=== PATIENT | female | born 2005 | race Caucasian/White ===

== ENCOUNTER 2024-09-16 19:29 | Emergency (ER) | payer OTHER, MEDICAID, SELFPAY ==
[2024-09-16 19:34] VITALS: BP 144/90; PULSE 83; RESP 16; TEMP 37.2; O2SAT 100
[2024-09-16 20:19] LABS: Add Urine Microscopic? NO; Appearance Urine Clear (Clear); Bilirubin Urine Negative (Negative); Blood Urine Negative (Negative); Color Urine Yellow (Yellow); Glucose Urine UA Negative (Negative); Ketones Urine Negative (Negative); Leukocyte Esterase Ur Negative LEU/UL (Negative); Nitrate Urine Negative (Negative); Protein Urine Negative (Negative); Specific Grav Ur 1.008 (1.001-1.035); Urobilinogen Urine 0.2 mg/dL (<2.0)
[2024-09-16 20:26] LABS: BEDSIDEPREGUCG Negative (Negative)
[2024-09-16] MEDS: SODIUM CHLORIDE 0.9% IV 1,000 ML 999 ML IV CONT (20:30)
[2024-09-16] MEDS: METOCLOPRAMIDE HCL INJ 10 MG/2 ML VIAL IV PUSH (20:30)
[2024-09-16] MEDS: KETOROLAC 30 MG/ML VIAL (*BKC) IV PUSH (20:31)
[2024-09-16] MEDS: diphenhydrAMINE HCl INJ 50 MG/ML VIAL 25 MG IV PUSH (20:31)
--- NOTE | 2024-09-16 21:34 | ED_ITS ---
HPI - Headache General Chief Complaint: Headache Stated Complaint: Headache, right eye blurred-Migraine Time Seen by Provider: 09/16/24 19:49 History of Present Illness HPI Narrative: Patient is a 18-year-old female who presents ER with multiple complaints. First complaint is migraine headache. Between eyebrows and over the right eye and radiates backwards. Intermittent over last month and she has been seen once in ER and prescribed a Triptan which is no longer working for. She has not seen a PCP but is scheduled to see 1 at the end of October. No fevers or chills or sweats. She will get some blurriness in the right eye when she has the headache. She also has occasional floaters but no flashes of light. Visual acuities are normal. She also reports that she had some diarrhea where she passed a mucus from the rectum today which concerned her. She has no abdominal pain or cramping. No history of inflammatory bowel disease. Patient has had a normal CT of her brain outpatient. Related Data Allergies Allergy/AdvReac Type Severity Reaction Status Date / Time No Known Allergies Allergy Mild Unverified 09/16/24 19:31 Review of Systems Review of Systems: All systems reviewed & are unremarkable except as noted in HPI and below Constitutional: Constitutional: Reports no additional constitutional complaints Cardiovascular: Cardiovascular: Reports no additional cardiovascular complaints Respiratory: Respiratory: Reports no additional respiratory complaints Gastrointestinal: Gastrointestinal: Reports no additional gastrointestinal complaints PMFSH Past Medical History Medical History (Updated 09/16/24 @ 21:46 by Sawyer Duncan MD) Migraine headache Exam Narrative: GENERAL: Well-appearing, well-nourished, and in no acute distress. HEAD: Normocephalic, atraumatic. ENT: Mucous membranes moist. CHEST: Clear to auscultation. No respiratory distress. HEART: Regular rate and rhythm. Normal peripheral pulses. ABDOMEN: Soft, nontender, nondistended. EXTREMITIES: Normal range of motion. No edema. SKIN: Warm, dry, no rash. NEURO: Alert and oriented x3. PSYCH: Normal mood and affect. Course Course Emergency Course: Patient resting comfortably. Improving with migraine cocktail. Appropriate for discharge home. Vital Signs Vital signs: Vital Signs Temperature 98.9 F 09/16/24 19:34 Pulse Rate 83 09/16/24 19:34 Respiratory Rate 16 09/16/24 19:34 Blood Pressure 144/90 H 09/16/24 19:34 Pulse Oximetry 100 09/16/24 19:34 Oxygen Delivery Room Air 09/16/24 19:34 Temperature 98.9 F 09/16/24 19:34 Pulse Rate 83 09/16/24 19:34 Respiratory Rate 16 09/16/24 19:34 Blood Pressure 144/90 H 09/16/24 19:34 Pulse Oximetry 100 09/16/24 19:34 Oxygen Delivery Room Air 09/16/24 19:34 MDM - Headache Lab Data Labs: Lab Results 09/16/24 09/16/24 Range/Units 20:09 20:23 Urine Color Yellow (Yellow) Urine Appearance Clear (Clear) Urine pH 7.0 (5.0-9.0) Ur Specific [place] 1.008 (1.001-1.035) Urine Protein Negative (Negative) mg/dL Urine Glucose (UA) Negative (Negative) mg/dL Urine Ketones Negative (Negative) mg/dL Ur Blood (Man) Negative (Negative) Urine Nitrate Negative (Negative) Urine Bilirubin Negative (Negative) Urine Urobilinogen 0.2 (<2.0) mg/dL Leukocyte Esterase Rfl Negative (Negative) KELLIE/UL POC Urine HCG, Qual Negative (Negative) Discharge Plan Discharge Clinical Impression: Headache Patient Disposition: Home, Self-Care Condition: Stable Instructions: Migraine Headache (ED) Additional Instructions: Try to stay well hydrated at home. Please return to the emergency department if you develop worsening of your headache or a new headache which is severe, associated with vision changes, associated with neck stiffness or fever, or if it is different from any other headache that you have had before. Return to the emergency department if you develop numbness, weakness or tingling or problems with coordination, or if you develop severe nausea and vomiting and are unable to keep down fluids at home. Patient Language: Romansh Prescriptions: New [id number] [Fioricet] 50-300-40 mg capsule 1 cap PO TID PRN (Reason: pain) Qty: 14 0RF Follow-up/Referrals: PHYSICIAN NOT ON STAFF,NONSTAFF [Primary Care Provider] - 1 Week
== END 2024-09-16 23:08 | disposition home or self-care (01) ==
PROVIDERS: Emergency Provider Emergency Medicine
DX: R51.9 Headache, unspecified (principal)
CPT/HCPCS: 81003; 81025; 96361; 96374; 96375; 99284; J1200; J1885; J2765; J7030